=== PATIENT | female | born 1960 | race Caucasian/White ===

== ENCOUNTER 2016-08-13 16:14 | Emergency (ER) | payer MEDICARE, OTHER ==
--- NOTE | ~2016-08-13 | CR72 ---
[facility] A Service of [facility] & [facility] RADIOLOGY TEXT RESULTS PATIENT: FRED METCALF LOCATION: [facility] : 60 UNIT #: [id number] AGE: [address]: Justyna Santos MD SEX: F ORDER DR: [id number] [facility] [address]. [place], [place] [address] [id number] MR#: [id number] Acc #: [id number] NAME: FRED METCALF : 1960 SEX: F STUDY DATE/TIME: 08/13/2016 19:49 UNIT: [facility] ROOM: STUDY DESCRIPTION: CR Chest Single View Portable Attending Physician: Justyna Santos M.D. Ordering Physician: Justyna Santos M.D. Primary Care Physician: Naz De Oliveira M.D. MEDICAL IMAGING REPORT This report is preliminary unless electronic signature is present EXAM AP portable chest 08/13/2016 HISTORY 55-year-old female complains of nausea, vomiting, diarrhea, chest pain since this morning. Previous history of stroke. History of asthma. COMPARISON AP portable chest 06/06/2015. FINDINGS There is linear subsegmental atelectasis within the left costophrenic angle. No dense lung consolidations are seen. Stable borderline cardiac enlargement. No pleural effusion or pneumothorax. IMPRESSION 1. Linear subsegmental atelectasis in the left base. 2. Stable mild cardiac enlargement. No evidence of pulmonary edema. Dictated by... Lynette Bingham M.D. THIS IS AN ELECTRONICALLY VERIFIED REPORT Lynette Bingham M.D. at 08/14/2016 10:06 AM MIKE/krupa TD: 08/14/2016 08:16 JOB #: [id number] MEDICAL IMAGING REPORT Page 1 of 1 COPY
--- NOTE | ~2016-08-13 | EKG ---
PATIENT: FRED METCALF UNIT #: [id number] Ventricular Rate: 71 BPM Atrial Rate: 71 BPM P-R Interval: 178 ms QRS Duration: 80 ms Q-T Interval: 392 ms QTC Calculation(Bezet): 425 ms P [place]: 27 degrees Calculated R [place]: -8 degrees Calculated T [place]: 23 degrees Diagnosis Line: Normal sinus rhythm Diagnosis Line: Normal ECG Diagnosis Line: When compared with ECG of 06-MAY-2016 19:39, Diagnosis Line: No significant change was found Diagnosis Line: Confirmed by LYNN COHEN MD ([id number]) on Diagnosis Line: 08/16/2016 9:47:59 AM INTERPRETING MD: NORA
[~2016-08-13 16:14] MED LIST: ALBUTEROL17 GM INH; CARVEDILOL25 MG PO; LISINOPRIL-HCTZ1 T14 PO; LOVASTATIN20 M1 PO; OMEPRAZOLE40 M1 PO
[2016-08-13 17:05] LABS: BASOPHIL% 0.5 % (0-2.5); EOSINOPHIL# 0.1 X10e3 (0-0.7); EOSINOPHIL% 1.7 % (0.0-7.0); HEMATOCRIT 46.2 % (35.0-45.0); HEMOGLOBIN 15.5 gm/dL (12.0-16.0); MEAN CELL VOLUME 89.6 FL (83-96); MEAN CORPUSCULAR HGB CONC 33.4 g/dL (30-36); MEAN PLATELET VOLUME 9.3 FL (6.5-11.5); MONOCYTE# 0.4 X10e3 (0-1.0); MONOCYTE% 4.8 % (3.0-12.0); NEUTROPHIL# 5.1 X10e3 (1.5-7.1); PLATELET COUNT 179 X10e3 (140-420); RED BLOOD COUNT 5.16 X10e (3.90-5.30); WHITE BLOOD COUNT 7.6 X10e3 (4.0-10.5)
[2016-08-13 17:07] LABS: DIFF IND NO
[2016-08-13 17:26] LABS: ALBUMIN SERUM 4.3 g/dL (3.5-5.0); BILIRUBIN, DIRECT 0.1 mg/dL (0.0-0.2); BILIRUBIN,INDIRECT 0.8 mg/dL (0.0-0.9); BILIRUBIN,TOTAL 0.9 mg/dL (0.2-2.0); BUN/CREATININE RATIO 14.54; CALCIUM SERUM 9.4 mg/dL (8.4-10.2); CREATININE SERUM 1.1 mg/dL (0.6-1.4); GLOM FILT RATE Estimated 56.5 mL/min (>60); POTASSIUM 3.7 mmol/L (3.5-5.1); PROTEIN TOTAL SERUM 7.7 g/dL (6.0-8.3)
[2016-08-13 18:40] LABS: URINE SOURCE CLEAN CATCH
[2016-08-13 18:50] LABS: URINE APPEARANCE CLEAR; URINE BILIRUBIN NEG (NEG); URINE BLOOD NEG (NEG); URINE COLOR YELLOW; URINE GLUCOSE NEG (NEG); URINE KETONE 2+ (NEG); URINE LEUKOCYTE ESTERASE NEG (NEG); URINE NITRATE NEG (NEG); URINE PH 5.5 (5-8); URINE PROTEIN NEG (NEG); URINE SPECIFIC GRAVITY 1.021 (1.003-1.035); URINE UROBILINOGEN 0.2 MG/DL (NEG)
[2016-08-13 18:59] LABS: CULTURE INDICATED? NO
[2016-08-13 20:06] LABS: POC - CKMB 1.5 ng/mL (0.0-7.9); POC - TROPONIN <0.05 ng/mL (<=0.05)
[2016-08-13 20:10] LABS: POC - CKMB 1.5 ng/mL (0.0-7.9); POC - TROPONIN <0.05 ng/mL (<=0.05)
== END 2016-08-13 23:10 | disposition home or self-care (01) ==
LOC: CED 16:14
PROVIDERS: Emergency Medicine
DX: T78.40XA Allergy, unspecified, initial encounter (principal); R42 Dizziness and giddiness; J45.909 Unspecified asthma, uncomplicated; I10 Essential (primary) hypertension
CPT/HCPCS: 36415; 71010; 80048; 80076; 81003; 82553; 83690; 84484; 85025; 93005; 96360; 96361; 99284